=== PATIENT | female | born 1940 | race Caucasian/White ===

== ENCOUNTER 2018-06-11 07:42 | Day surgery (SDC) | payer MEDICARE, BC ==
[~2018-06-11] VITALS: Ht 165.1 cm; Wt 66.0 kg
[2018-06-11 08:29] VITALS: BP 156/103
[2018-06-11] MEDS ORDERED: ATOR40TA PO (08:38)
[2018-06-11] MEDS ORDERED: DILT240C61 PO (08:38)
[2018-06-11] MEDS ORDERED: CLON0.1T22 PO (08:38)
[2018-06-11] MEDS ORDERED: LOSA25TA25 PO (08:38)
[2018-06-11] MEDS ORDERED: ACYC-114 PO (08:38)
[2018-06-11] MEDS ORDERED: APIX5TAB PO (08:38)
[2018-06-11] MEDS ORDERED: FLEC100T PO (08:38)
[2018-06-11] MEDS ORDERED: DIGO125T76 PO (08:38)
[2018-06-11] MEDS ORDERED: POTA20TA89 PO (08:38)
[2018-06-11] MEDS ORDERED: essential enzymes PO (08:53)
[2018-06-11] MEDS ORDERED: CALC-709 PO (08:53)
[2018-06-11] MEDS ORDERED: BIOT10005 PO (08:53)
[2018-06-11] MEDS ORDERED: OMEG1CAP24 PO (08:53)
[2018-06-11] MEDS ORDERED: ASCO10004 PO (08:53)
[2018-06-11] MEDS ORDERED: MAGN400T36 PO (08:53)
[2018-06-11] MEDS ORDERED: ASPI-496 PO (08:53)
[2018-06-11] MEDS ORDERED: VIT1TABL32 PO (08:53)
[2018-06-11] MEDS ORDERED: CHOL200040 PO (08:53)
[2018-06-11] MEDS ORDERED: TURM1POW2 PO (08:53)
[2018-06-11] MEDS ORDERED: CART1TAB4 PO (08:53)
[2018-06-11] MEDS ORDERED: CYAN100072 PO (08:53)
[2018-06-11] MEDS ORDERED: LORA-439 PO (08:53)
[2018-06-11] MEDS ORDERED: GASTREX PO (08:53)
[2018-06-11] MEDS ORDERED: VITA1CAP7 PO (08:53)
[2018-06-11] MEDS ORDERED: PYRI100T2 PO (08:53)
[2018-06-11] MEDS ORDERED: UBID100C41 PO (08:53)
[2018-06-11] MEDS ORDERED: SODIUM CHLORIDE 0.9% 1,000 ML IV SCH (10:00)
[2018-06-11] MEDS ORDERED: SODIUM CHLORIDE 0.9% 1,000 ML IV ONE (10:00)
[2018-06-11] MEDS ORDERED: MIDAZOLAM 1 MG/ML, 2ML ONE (12:28)
[2018-06-11] MEDS ORDERED: FENTANYL PF 250 MCG/5ML ONE (12:29)
[2018-06-11] MEDS ORDERED: DEXAMETHASONE 4 MG/ML, 5ML ONE (12:54)
[2018-06-11] MEDS ORDERED: ONDANSETRON 2MG/ML, 2ML ONE (12:54)
[2018-06-11] MEDS ORDERED: ROCURONIUM 10MG/ML,5ML ONE (13:04)
[2018-06-11] MEDS ORDERED: SUCCINYLCHOLINE 20 MG/ML, 10ML ONE (13:04)
[2018-06-11] MEDS ORDERED: EPHEDRINE 50 MG/ML, 1ML ONE (13:04)
[2018-06-11] MEDS ORDERED: PROPOFOL 10 MG/ML, 20ML ONE (13:04)
[2018-06-11] MEDS ORDERED: APIXABAN 5 MG TABLET ONE (14:08)
[2018-06-11] MEDS ORDERED: MIDAZOLAM 1 MG/ML, 2ML IV PRN (14:30)
[2018-06-11] MEDS ORDERED: MORPHINE SULFATE 4 MG/ML, 1ML IVPush PRN (14:30)
[2018-06-11] MEDS ORDERED: ALBUTEROL SULFATE 2.5 MG/3 ML NPPB PRN (14:30)
[2018-06-11] MEDS ORDERED: ONDANSETRON 2MG/ML, 2ML IV PRN (14:30)
[2018-06-11] MEDS ORDERED: hydrALAzine 20 MG/ML, 1ML IV PRN (14:30)
[2018-06-11] MEDS ORDERED: HYDROmorphone 2 MG/ML, 1ML IVPush PRN (14:30)
[2018-06-11] MEDS ORDERED: ONDANSETRON ODT 8 MG PO PRN (14:30)
[2018-06-11] MEDS ORDERED: EPHEDRINE 50 MG/ML, 1ML IVPush PRN (14:30)
[2018-06-11] MEDS ORDERED: GASTREX PO PRN (14:30)
[2018-06-11] MEDS ORDERED: HALOPERIDOL 5 MG/ML IV PRN (14:30)
[2018-06-11] MEDS ORDERED: FENTANYL PF 100 MCG/2ML IV PRN (14:30)
[2018-06-11] MEDS ORDERED: DIAZEPAM 5 MG/ML, 2ML IVPush PRN (14:30)
[2018-06-11] MEDS ORDERED: PROMETHAZINE 25 MG/ML, 1ML IV PRN (14:30)
[2018-06-11] MEDS ORDERED: PROMETHAZINE 12.5 MG SUPP PR PRN (14:30)
[2018-06-11] MEDS ORDERED: MEPERIDINE/PF 25MG/0.5ML IVPush PRN (14:30)
[2018-06-11] MEDS ORDERED: ACETAMINOPHEN 325 MG TABLET PO PRN ×2 (14:30)
[2018-06-11] MEDS ORDERED: LABETALOL 5MG/ML, 20ML IV PRN (14:30)
[2018-06-11] MEDS ORDERED: OXYcodone 5 MG/5 ML ORAL.SOL UDC PO PRN (14:30)
[2018-06-11] MEDS ORDERED: OXYcodone 5 MG/5 ML ORAL.SOL UDC ONE (14:44)
[2018-06-11] MEDS ORDERED: APIXABAN 5 MG TABLET PO SCH (21:00)
[2018-06-11] MEDS ORDERED: ATORVASTATIN 10 MG TABLET PO SCH (21:00)
[2018-06-11] MEDS ORDERED: FLECAINIDE 100MG TABLET PO SCH (21:00)
[2018-06-12] MEDS ORDERED: MAGNESIUM OXIDE 400 MG TABLET PO SCH (09:00)
[2018-06-12] MEDS ORDERED: DIGOXIN 0.125 MG TABLET PO SCH (09:00)
[2018-06-12] MEDS ORDERED: OMEGA-3/FISH OIL CAPSULE PO SCH (09:00)
[2018-06-12] MEDS ORDERED: TEMPLATE NON-FORMULARY MED. (Ubidecarenone** (Co Q-10**) 300 MG) PO SCH (09:00)
[2018-06-12] MEDS ORDERED: BIOTIN PO SCH (09:00)
[2018-06-12] MEDS ORDERED: ASPIRIN 81 MG TABLET EC PO SCH (09:00)
[2018-06-12] MEDS ORDERED: LORATADINE 10 MG TABLET PO SCH (09:00)
[2018-06-12] MEDS ORDERED: DILTIAZEM 240 MG CAP.ER.24H PO SCH (09:00)
[2018-06-12] MEDS ORDERED: TURMERIC PO SCH (09:00)
[2018-06-12] MEDS ORDERED: ESSENTIAL ENZYMES PO SCH (09:00)
[2018-06-12] MEDS ORDERED: CHOLECALCIFEROL 1,000 UNIT TABLET PO SCH (09:00)
[2018-06-12] MEDS ORDERED: TEMPLATE NON-FORMULARY MED. (Cartilage/Collagen/Bor/Hyalur (Move Free Ultra Tablet) 1 TAB) PO SCH (09:00)
[2018-06-12] MEDS ORDERED: CALCIUM/VITAMIN D3 250-125 TABLET PO SCH (09:00)
[2018-06-12] MEDS ORDERED: CYANOCOBALAMIN 1,000 MCG TABLET PO SCH (09:00)
[2018-06-12] MEDS ORDERED: PHENAZOPYRIDINE 100 MG TABLET PO SCH (09:00)
[2018-06-12] MEDS ORDERED: POTASSIUM CHLORIDE 20 MEQ TAB.ER.PRT PO SCH (09:00)
[2018-06-12] MEDS ORDERED: ACYCLOVIR 400 MG TABLET PO SCH (09:00)
[2018-06-12] MEDS ORDERED: MULTIVITS,STRESS FORMULA 1 TABLET PO SCH (09:00)
[2018-06-12] MEDS ORDERED: ASCORBIC ACID 500 MG TABLET PO SCH (09:00)
[2018-06-12] MEDS ORDERED: LOSARTAN 50MG TABLET PO SCH (09:00)
[2018-06-12] MEDS ORDERED: MULTIVITAMINS/MINERALS TABLET PO SCH (09:00)
== END 2018-06-11 18:23 | disposition home or self-care (01) ==
LOC: CACL 07:42 → 5SO 16:47 → CACL 18:23
PROVIDERS: ATTEND Internal Medicine Cardiovascular Disease
DX: I48.92 Unspecified atrial flutter (principal); I34.0 Nonrheumatic mitral (valve) insufficiency; I36.1 Nonrheumatic tricuspid (valve) insufficiency; I10 Essential (primary) hypertension; E78.5 Hyperlipidemia, unspecified; Z88.0 Allergy status to penicillin
CPT/HCPCS: 93312; 93321; 93325; 93613; 93653; 93662; C1730; C1731; C1766; C1894; C2630; J0330; J1100; J2250; J2405; J2704; J3010; G0378